=== PATIENT | male | born 2000 | race Caucasian/White ===

== ENCOUNTER 2021-07-07 10:26 | Emergency (ER) | payer OTHER ==
[~2021-07-07 10:26] MED LIST: TYLENOL 500 MG500 MG PO; ZOFRAN4 MG PO
[2021-07-07] MEDS ORDERED: CEPHALEXIN500 MG PO (12:12)
== END 2021-07-07 12:38 | disposition home or self-care (01) ==
LOC: ER1 10:26
DX: S61.210A Laceration without foreign body of right index finger without damage to nail, initial encounter (principal); W45.8XXA Other foreign body or object entering through skin, initial encounter
CPT/HCPCS: 12001; 73130; 99283

== ENCOUNTER → 2022-01-25 | Outpatient (CLI) | payer OTHER ==
[~2022-01-25] MED LIST changes: +CEPHALEXIN500 MG PO
== END ==
LOC: KOH-I 13:42
DX: M25.511 Pain in right shoulder (principal)
CPT/HCPCS: 73030

== ENCOUNTER → 2022-01-29 | Outpatient (CLI) | payer OTHER | LOC: KOH-I 11:45 | DX: M54.9 Dorsalgia, unspecified (principal); M41.9 Scoliosis, unspecified | CPT/HCPCS: 72082 ==